=== PATIENT | male | born 1995 | race Hispanic/Latino ===

== ENCOUNTER 2021-07-07 15:12 | Emergency (ER) | payer OTHER ==
[2021-07-07] MEDS ORDERED: Tetracaine 0.5% PF 4 ML BOT ONE (15:36)
[2021-07-07] MEDS ORDERED: Fluorescein Opthalmic Strip ONE (15:36)
[2021-07-07] MEDS ORDERED: Sulfacetamide Sodium 10% Ophth Soln 15 ML BOT ONE (15:55)
== END 2021-07-07 16:10 | disposition home or self-care (01) ==
LOC: MADERS 15:12
DX: S05.02XA Injury of conjunctiva and corneal abrasion without foreign body, left eye, initial encounter (principal); F17.210 Nicotine dependence, cigarettes, uncomplicated; W22.8XXA Striking against or struck by other objects, initial encounter
CPT/HCPCS: 99283